=== PATIENT | female | born 1975 | race Caucasian/White ===

== ENCOUNTER → 2016-10-12 | Outpatient (CLI) | payer OTHER ==
[~2016-10-12] MED LIST: ACET-1256 PO; ASPCH81X PO; ATOR-26 PO; CEPH500C2 PO; CLOP1TAB15 PO; EMPA1TAB3 PO; LIRA18IN SQ; LISI-729 PO; LORA-741 PO; LSX20 PO; METF-384 PO; METO1TAB68 PO; NTRGSL/4 SL; SERT-234 PO; SILV1CRE73 TOP; SPIR25TA PO
[2016-10-12 15:10] LABS: BLOOD UREA NITROGEN 18 mg/dl (7-18); CREATININE 0.83 mg/dl (0.60-1.20)
== END | disposition home or self-care (01) ==
LOC: C.LAB 13:20
PROVIDERS: ATTEND Emergency Medicine
DX: E11.9 Type 2 diabetes mellitus without complications (principal)

== ENCOUNTER → 2016-10-16 | Outpatient (CLI) | payer OTHER ==
[~2016-10-16] MED LIST changes: -ACET-1256 PO; +OPTIRAY 320 IV PRN
--- NOTE | 2016-10-16 12:41 | DIAGNOSTIC IMAGING REPORT ---
LEFT LOWER EXTREMITY WITH HISTORY: 40 years-old Female L 1ST TOE NON HEALING WOUND X1YR . History of diabetes COMPARISON: None available TECHNIQUE: Multiple axial CT images of the left foot were obtained following the intravenous administration of 92 mL Optiray 320. Coronal and sagittal reformatted images were obtained from the axial data set and submitted for review. A dose lowering technique was used consistent with the principals of ZAHRA. FINDINGS: There is a focal area of skin thickening and increased enhancement along the plantar aspect of the foot at the level of the first metatarsal head, 1.8 x 1.7 cm. Additionally, there is a focal skin ulcer with moderate degree of associated soft tissue stranding and edema along the plantar aspect of the great toe centered over the distal shaft of the first proximal phalanx and first interphalangeal joint measuring approximately 2.1 x 1.7 cm. There is no associated drainable soft tissue collection to suggest abscess. There is no radiopaque foreign body. No associated erosive destructive changes are seen to suggest osteomyelitis at this time. No periosteal reaction is seen. Soft tissue swelling extends beneath the nailbed. There is moderate amount of edema throughout the soft tissues and musculature of the foot. There is moderate intrinsic muscular atrophy about the foot. There is moderate degenerative spurring of the calcaneus. 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 Degenerative changes are seen involving the hallux sesamoids and first metatarsal head. 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 No acute fracture or dislocation is identified. Midfoot alignment is anatomic. Talar dome is smooth without osteochondral defect. Peripheral vascular calcifications are noted. There is globular morphology of the peroneal brevis tendon along its inframalleolar course, nicely seen on image 29 the coronal series suggesting split tear. There is thickening of the medial cord plantar fascia compatible with plantar fasciitis. IMPRESSION: 1. Skin ulcer of the first toe centered at the first phalanx and first interphalangeal joint without associated erosive bony changes to suggest osteomyelitis. No drainable fluid collection. 2. Soft tissue swelling adjacent to the ulcer extends beneath the nailbed. Correlate clinically to exclude paronychia. 3. Degenerative changes about the foot as above. 4. Moderate amount of edema throughout the soft tissues of the foot is nonspecific and may reflect cellulitis or venous stasis. 5. Moderate intrinsic muscular atrophy likely secondary to denervation changes related to chronic diabetes. 6. Probable split tear of the peroneus brevis tendon. The above report was generated using voice recognition software. It may contain grammatical, syntax or spelling errors. Electronically signed by: Kingsley Wolf M.D. 10/16/2016 12:39 PM Dictated Date/Time: 10/16/2016 12:25 PM
== END | disposition home or self-care (01) ==
LOC: C.CTS 11:50
PROVIDERS: ATTEND Emergency Medicine
DX: E11.621 Type 2 diabetes mellitus with foot ulcer (principal); L97.529 Non-pressure chronic ulcer of other part of left foot with unspecified severity

== ENCOUNTER → 2016-12-04 | Outpatient (CLI) | payer OTHER ==
[~2016-12-04] MED LIST changes: -CEPH500C2 PO; -OPTIRAY 320 IV PRN
[2016-12-04 17:59] LABS: HEMATOCRIT 38.6 % (37-47)
[2016-12-04 18:14] LABS: THYROID STIMULATING HORMONE 1.81 uIu/ml (0.300-4.500)
[2016-12-05 08:29] LABS: ESTIMATED AVERAGE GLUCOSE 206 mg/dl; HA1C FLAG Normal (Normal)
[2016-12-09 02:22] LABS: ISLET CELL AB NEGATIVE (NEGATIVE)
== END | disposition home or self-care (01) ==
LOC: C.LABMFLN 13:31
PROVIDERS: ATTEND Internal Medicine Endocrinology, Diabetes & Metabolism
DX: E11.9 Type 2 diabetes mellitus without complications (principal)

== ENCOUNTER → 2017-05-07 | Outpatient (CLI) | payer OTHER ==
[~2017-05-07] MED LIST changes: +METO-479 PO; -METO1TAB68 PO
--- NOTE | 2017-05-07 15:26 | MAMMOGRAPHY REPORT ---
ULTRASOUND OF LEFT BREAST: 05/07/2017 CLINICAL HISTORY: The patient reports skin erythema and significant pain as well as a lump in the lef t breast since Wednesday. She reports the skin erythema and pain are increasing. She is not breast fe eding. COMPARISON: Prior outside mammograms from [facility] dated 09/14/2014. TECHNIQUE: Real-time targeted ultrasound of the left breast was performed. FINDINGS: Mammograms were going to be performed, however, the patient could not tolerate mammograms d ue to significant pain. Therefore, ultrasound only was performed. Targeted ultrasound was performed of the area of the palpable lump and associated skin erythema and pain involving the entire left low er outer quadrant from approximately 3 to 6:00. There is significant skin thickening throughout the left lower outer quadrant. Additionally, there is heterogeneous echotexture of the breast parenchyma throughout the left lower outer quadrant with associated increased vascularity, consistent with infl ammatory changes. Findings are compatible with mastitis. No focal fluid collection is seen to sugge st abscess. IMPRESSION: ACR BI-RADS CATEGORY 0: INCOMPLETE EVALUATION: NEED ADDITIONAL IMAGING EVALUATION - FOLL OW-UP RECOMMENDED 1. Skin thickening and heterogeneous breast parenchyma throughout the left lower outer quadrant at t he site of skin erythema, pain, and palpable lump. Findings are most compatible with mastitis. Ther e is no evidence of abscess at this time. 2. Mammograms were not performed today as the patient could not tolerate mammograms due to the signi ficant pain. Once the patient's symptoms have improved and she can tolerate compression, she should return for bilateral diagnostic mammograms in order to have a complete workup. Also recommend clinic al follow-up to complete resolution of symptoms. Chelsi Johnson M.D. ah/:05/07/2017 15:01:06 Damage Appraiser: Carol HAMEED(Nhi)(Sky), [facility] letter sent: Addl Imaging 0 BI-RADS Code: ACR BI-RADS Category 0: Incomplete Evaluation: Need Additional Imaging Evaluation
== END | disposition home or self-care (01) ==
LOC: C.MAMM 14:24
PROVIDERS: ATTEND Obstetrics & Gynecology
DX: N63.20 Unspecified lump in the left breast, unspecified quadrant (principal); L53.9 Erythematous condition, unspecified

== ENCOUNTER → 2017-05-18 | Outpatient (CLI) | payer OTHER | END | disposition home or self-care (01) | LOC: C.PATHSPEC 17:53 | PROVIDERS: ATTEND Surgery | DX: N61.0 Mastitis without abscess (principal); N64.1 Fat necrosis of breast ==